=== PATIENT | female | born 1970 | race Caucasian/White ===

== ENCOUNTER 2019-01-25 14:29 | Emergency (ER) | payer MEDICAID ==
[~2019-01-25] VITALS: Ht 165.1 cm; Wt 70.0 kg
[2019-01-25] MEDS ORDERED: METHOCARBAMOL 500MG TABLET PO ONE (15:30)
[2019-01-25] MEDS ORDERED: IBUPROFEN 600MG TABLET PO ONE (15:30)
[2019-01-25 15:48] VITALS: BP 115/78
== END 2019-01-25 17:15 | disposition home or self-care (01) ==
LOC: ER 14:52
DX: S16.1XXA Strain of muscle, fascia and tendon at neck level, initial encounter (principal); I10 Essential (primary) hypertension; V49.49XA Driver injured in collision with other motor vehicles in traffic accident, initial encounter; Y93.89 Activity, other specified; Y92.89 Other specified places as the place of occurrence of the external cause; Y99.8 Other external cause status; Z88.8 Allergy status to other drugs, medicaments and biological substances; Z87.19 Personal history of other diseases of the digestive system
CPT/HCPCS: 99284